=== PATIENT | male | born 1955 | race Caucasian/White ===

== ENCOUNTER 2022-03-04 10:29 | Outpatient (CLI) | payer MEDICARE, OTHER, SELFPAY | END 2022-03-04 10:30 | disposition home or self-care (01) | LOC: ANHAUDIO 10:30 | PROVIDERS: PCP Family Medicine; Visit Provider Internal Medicine | DX: H90.3 Sensorineural hearing loss, bilateral (principal) | CPT/HCPCS: 92557; 92567 ==

== ENCOUNTER 2022-07-01 01:42 | Day surgery (SDC) | payer MEDICARE, OTHER, SELFPAY ==
[2022-06-17 13:48] VITALS: BMI 26.6
[2022-07-01 09:11] VITALS: BP 150/76; PULSE 96; RESP 16; TEMP 36.5; O2SAT 98
[2022-07-01] MEDS: LACTATED RINGERS 1,000 ML 150 ML IV CONT (09:20)
[2022-07-01 09:25] LABS: Glucose Point of Care 101 mg/dl (65-105)
--- NOTE | 2022-07-01 09:46 | P.HP_ITS ---
History of Present Illness History of Present Illness Consent: Risks, benefits, and alternatives have been discussed and questions answered. Patient agrees to proceed with procedure. Chief complaint: Hx of colon polyps Narrative: Ebenezer Murdock is a 66 year old male Presents for screening colonoscopy. Patient's current weight appetite bowel movements are normal. He denies abdominal pain. Patient has had no bleeding. Family history noncontributory. Patient did have a colonoscopy 2016 that revealed adenomatous colon polyps. Patient presents today for screening colonoscopy Review of Systems Review of Systems: review of systems noncontributory. FOR[facility]LY [facility] Social History Social History Smoking status: Current some day smoker Tobacco type: smokeless tobacco Alcohol use details: 2 drinks monthly Substance use type: does not use Living arrangements: with family Spiritual care concerns: No Meds Home Medications and Allergies Home Medications Medication Instructions Recorded Confirmed Type aspirin 81 mg tablet 81 mg PO DAILY 06/17/22 07/01/22 History cholecalciferol (vitamin D3) 25 25 mcg PO DAILY 06/17/22 07/01/22 History mcg (1,000 unit) tablet (Vitamin D3) lisinopril 20 mg tablet 20 mg PO DAILY 06/17/22 07/01/22 History mecobalamin (vitamin B12) 1,000 1,000 mcg PO DAILY 06/17/22 07/01/22 History mcg chewable tablet metformin 500 mg tablet,extended 1,000 mg PO DAILY 06/17/22 07/01/22 History release 24 hr fpcdgifq-rot-veffh acid 300 1 tablet PO DAILY 06/17/22 07/01/22 History mcg-lycopene 600 mcg-lutein 300 mcg tablet (Centrum Silver Men) pravastatin 40 mg tablet 40 mg PO HS 06/17/22 07/01/22 History sodium,potassium,mag sulfates 17.5 See Rx Instructions PO .COMPLEX 06/23/22 07/01/22 Rx gram-3.13 gram-1.6 gram oral soln #354 mL (Suprep Bowel Prep Kit) Allergies Allergy/AdvReac Type Severity Reaction Status Date / Time codeine AdvReac Nausea and Verified 07/01/22 09:08 Vomiting Vital Signs Vital Signs - 24 hr 07/01/22 09:11 Temperature 97.7 F Pulse Rate 96 Respiratory Rate 16 Blood Pressure 150/76 H Pulse Oximetry 98 Oxygen Delivery Room Air Exam Narrative: Physical exam reveals patient be alert. Vital signs stable. HEENT exam is unremarkable. Patient is anicteric. Lungs are clear to auscultation and percussion. Heart is without murmur or extra sounds. Abdomen bowel sounds are present soft nontender with no organomegaly. Digital external rectal exam is normal. Assessment and Plan Assessment and plan (1) History of colon polyps: Code(s): Z86.010 - Personal history of colonic polyps Status: Acute Assessment and Plan: Patient presents for screening colonoscopy. Prior history of adenomatous colon polyp in 2017. Plan for screening colonoscopy at 5 year intervals. Further recommendations may be given after endoscopy.
--- NOTE | 2022-07-01 10:05 | P.PNAN_ITS ---
Anes - Initial Pre Proc Eval Procedure: Operation Date: 07/01/22 10:15 Proposed Procedures p Screening Colonoscopy - Luis Humphrey MD Date/Time: 07/01/22 10:05 Surgeon: Luis Humphrey MD Pre Op Diagnosis: Hx of colon polyps Patient Data Age: 66 Gender: M Height: 1.68 m Weight: 78.6 kg Last Vital Signs Temp 97.7 F 07/01/22 09:11 Pulse 96 07/01/22 09:11 Resp 16 07/01/22 09:11 BP 150/76 H 07/01/22 09:11 Pulse Ox 98 07/01/22 09:11 O2 Del Method Room Air 07/01/22 09:11 Allergies Allergy/AdvReac Type Severity Reaction Status Date / Time codeine AdvReac Nausea and Verified 07/01/22 09:08 Vomiting Home Medications Medication Instructions Recorded Confirmed Type aspirin 81 mg tablet 81 mg PO DAILY 06/17/22 07/01/22 History cholecalciferol (vitamin D3) 25 25 mcg PO DAILY 06/17/22 07/01/22 History mcg (1,000 unit) tablet (Vitamin D3) lisinopril 20 mg tablet 20 mg PO DAILY 06/17/22 07/01/22 History mecobalamin (vitamin B12) 1,000 1,000 mcg PO DAILY 06/17/22 07/01/22 History mcg chewable tablet metformin 500 mg tablet,extended 1,000 mg PO DAILY 06/17/22 07/01/22 History release 24 hr lqfkzdpo-and-aftsg acid 300 1 tablet PO DAILY 06/17/22 07/01/22 History mcg-lycopene 600 mcg-lutein 300 mcg tablet (Centrum Silver Men) pravastatin 40 mg tablet 40 mg PO HS 06/17/22 07/01/22 History sodium,potassium,mag sulfates 17.5 See Rx Instructions PO .COMPLEX 06/23/22 07/01/22 Rx gram-3.13 gram-1.6 gram oral soln #354 mL (Suprep Bowel Prep Kit) Laboratory Tests 07/01/22 09:22 POC Capillary Glucose 101 mg/dl mg/dl (65-105) Patient hx anesthesia problems: none Family hx anesthesia problems: none Results Review: All pre-operative results and documents have been reviewed as part of the pre- operative evaluation. PMF Social History Social History Smoking status: Current some day smoker Tobacco type: smokeless tobacco Alcohol use details: 2 drinks monthly Substance use type: does not use Living arrangements: with family Spiritual care concerns: No Anes - Eval Final PreProcedure Day of Procedure 07/01/22 10:05 Patient weight: normal Heart: regular rate and rhythm Lungs: clear to auscultation Airway: Mallampati scale class II Neurological: alert and oriented Last oral intake: >/= 8 hours ASA classification: III Emergent: no Anesthetic plan: proceed Anesthesia type and monitoring: general GIVS and standard monitoring Results Review: All pre-operative results and documents have been reviewed as part of the pre- operative evaluation. Informed Consent: The patient's anesthetic plan and its attendant risks and benefits were discussed with the patient/family/POA. Questions were solicited and answers provided to the satisfaction of the patient/family/POA.
[2022-07-01 10:58] VITALS: BP 102/68; PULSE 88; RESP 16; O2SAT 95
[2022-07-01 11:08] VITALS: BP 133/76; PULSE 70; RESP 18; O2SAT 98
[2022-07-01 11:18] VITALS: BP 152/71; PULSE 74; RESP 18; O2SAT 98
== END 2022-07-01 11:27 | disposition home or self-care (01) ==
PROVIDERS: PCP Family Medicine; Visit Provider Internal Medicine Gastroenterology
PROC: 0DJD8ZZ Inspection of Lower Intestinal Tract, Via Natural or Artificial Opening Endoscopic (ICD-10-PCS; CPT 45378; principal; 2022-07-01 10:15)
DX: Z12.11 Encounter for screening for malignant neoplasm of colon (principal); K64.8 Other hemorrhoids; K57.30 Diverticulosis of large intestine without perforation or abscess without bleeding; Z86.010 Personal history of colon polyps; Z79.82 Long term (current) use of aspirin; Z79.84 Long term (current) use of oral hypoglycemic drugs; F17.220 Nicotine dependence, chewing tobacco, uncomplicated
CPT/HCPCS: G0105; 82948; J2704; J7120

== ENCOUNTER 2022-07-01 11:30 | Outpatient (RCR) | payer MEDICARE, OTHER, SELFPAY | END 2022-07-01 23:59 | disposition home or self-care (01) | LOC: ANHAUDIO 11:30 | PROVIDERS: PCP Family Medicine; Visit Provider Family Medicine | DX: Z46.1 Encounter for fitting and adjustment of hearing aid (principal) | CPT/HCPCS: 99199; V5261 ==

== ENCOUNTER 2023-07-06 14:15 | Outpatient (RCR) | payer MEDICARE, OTHER, SELFPAY ==
--- NOTE | 2023-05-03 09:01 | PTOPEVAL1 ---
Assessment and note entered by Juaquin Wise Evaluation Information Assessment Status Evaluation Diagnosis right shoulder pain Onset 04/21/23 Subjective Information Pt. reports that he developed right shoulder pain about 2 weeks ago. He recalls no incident, just woke with pain. he reports that pain is incresaed with laying on the right side. He recalls no pain in the neck, but describes pain radiating down the entire arm. He reports that he has no pain with moving the shoulder he has no increase in pain. Pt. reports that he underwent xray that was negative. pt. is right hand dominant. Pt. reports that he is still able to complete all his regular at home activities, including yardwork. He states that his biggest complication is his difficulty with sleep due to his shoulder/right arm pain. he reports that his goal for therapy is to reduce his pain so he can sleep better. Reported Pain Level Pain Score 5: Self Report Assessment PT Clinical Summary Pt. is a 67 year old male who enters the clinic with right shoulder pain. Upon examination pt. presents with objective findings consistent with right cervical radiculopathy. He currently presents with right u.e. weakness, impaired postural awareness, impaired c-spine ROM and pain. Continued skilled PT is indicated in order to improve these areas to allow the pt. to be able to participate in all IADL's without limitation. Plan of Care Interventions Electrical Stimulation,Hot Pack/Cold Pack,Manual Therapy,Neuro Re-education,Patient/Caregiver Educati,Therapeutic Activities,Therapeutic Exercise PT Services Indicated Yes Treatment Frequency and 2x/week x 10 visits Duration These treatments will address the objective and functional deficits as defined above. The patient will be advanced safely and appropriately in order for the patient to progress towards his/her prior level of function. Additional exercises will be introduced and as well as a comprehensive home exercise program upon discharge, if needed, ?to ensure carryover of functional gains achieved in the clinic. This treatment plan has been reviewed and agreement upon by the patient.
--- NOTE | 2023-05-03 09:11 | OPREHPOC ---
Outpatient Therapy Plan of Care This is a Multidisciplinary Plan of Care that may contain components documented by all disciplines (PT, OT, and ST.) PT Problem 1 PT Problem #1 Knowledge Deficit PT Goal 1 Goal Pt. will be independent with a HEP addressing posture and strength. Target Visit 2 PT Problem 2 PT Problem #2 Impaired Range of Motion PT Goal 1 Goal Pt. will demonstrate 80 degrees of right cervical rotation and 45 degrees of right lateral flexion in order to improve visual field with activities such as driving. Target Visit 10 PT Problem 3 PT Problem #3 Impaired Strength PT Goal 1 Goal Pt. will increase right tricep strength to 4/5 or greater PT Goal 2 Goal Pt. will demonstrate 4+/5 or greater gross right u .e. strength to assist with improved IADL performance PT Problem 4 PT Problem #4 Impaired Functional Mobil PT Goal 1 Goal Pt. will report being able to sleep through the night without pain disturbance Target Visit 10
--- NOTE | 2023-05-31 16:37 | PTOPPROG ---
Assessment and note entered by Amarilys Macias, PT Assessment Status Progress Diagnosis right shoulder pain, cervical radiculopathy Onset 04/21/23 Subjective Information Self-perceived improvement: 90% Still has tingling in RUE and periodically if doing things, will have some aggravation up in the shoulder. Has been doing half a dose of the meloxicam for approx a week, has not changed symptoms. Has been able to return to sleeping normally, that's improved 100% Assessment PT Clinical Summary Pt has presented to therapy consistently for right shoulder pain that appears to be related to cervical spine causing radiculopathy. Pt has greatly improved in his pain ratings, has been able to reduce meloxicam, improved ability to adopt appropriate postures, improved ROM, and improved shoulder strength. Cont to demo significantly decreased tricep strength, cont to have radicular symptoms at times, and cont to have a stiff cervical spine as well as cont difficulty with scapular awareness. Thus patient will benefit from cont therapy to continue progress and return to painfree lifestyle. Plan of Care Interventions Electrical Stimulation,Gait Training,Hot Pack/Cold Pack,Manual Therapy,Mechanical Traction,Neuro Re- education,Patient/Caregiver Educati,Therapeutic Activities,Therapeutic Exercise,Ultrasound PT Services Indicated Yes Treatment Frequency and 1-2x weekly x 4 weeks Duration These treatments will address the objective and functional deficits as defined above. The patient will be advanced safely and appropriately in order for the patient to progress towards his/her prior level of function. Additional exercises will be introduced and as well as a comprehensive home exercise program upon discharge, if needed, ?to ensure carryover of functional gains achieved in the clinic. This treatment plan has been reviewed and agreement upon by the patient.
--- NOTE | 2023-07-01 12:50 | PTOPPROG ---
Assessment and note entered by Amarilys Macias, PT Assessment Status Progress Diagnosis right shoulder pain, cervical radiculopathy Onset 04/21/23 Subjective Information Reports most discomfort in the morning. Has had mainly shoulder pain but up to a 1/10. using biofreeze helps sleep at night. Is now able to sleep on both sides. Only has tingling with wall exercises. Still feels about 90% improved overall. Much less tingling and intensity is less as well. Assessment PT Clinical Summary Pt has attended therapy consistently for right shoulder pain and radiculopathy. Pt does not seem to have improved in ROM quantity but pt reports greater ease of movement with ROM testing. Continues to feel 90% improved overall but does report since shift in focus to cervical mechanical traction and IASTM to right shoulder improvement in symptoms. Pt will also be leaving for multiple months soon thus will benefit from one additional visit for cervical traction and to finalize HEP and plan for his vacation. Plan of Care Interventions Electrical Stimulation,Gait Training,Hot Pack/Cold Pack,Manual Therapy,Mechanical Traction,Neuro Re- education,Patient/Caregiver Educati,Therapeutic Activities,Therapeutic Exercise,Ultrasound PT Services Indicated Yes Treatment Frequency and 1 additional visit to finalize plan for vacation Duration These treatments will address the objective and functional deficits as defined above. The patient will be advanced safely and appropriately in order for the patient to progress towards his/her prior level of function. Additional exercises will be introduced and as well as a comprehensive home exercise program upon discharge, if needed, ?to ensure carryover of functional gains achieved in the clinic. This treatment plan has been reviewed and agreement upon by the patient.
--- NOTE | 2023-07-22 13:54 | PTOPDC ---
Assessment and note entered by Amarilys Macias, PT Assessment Status Discharge - Pt Not Present Diagnosis right shoulder pain, cervical radiculopathy Onset 04/21/23 Subjective Information Reports most discomfort in the morning. Has had mainly shoulder pain but up to a 1/10. using biofreeze helps sleep at night. Is now able to sleep on both sides. Only has tingling with wall exercises. Still feels about 90% improved overall. Much less tingling and intensity is less as well. Assessment PT Clinical Summary Pt attended therapy consistently, has updated HEP, and [place] Thus patient is being discharged from services
== END 2023-07-22 14:01 | disposition home or self-care (01) ==
LOC: ANHHIPT 14:15
PROVIDERS: PCP Family Medicine; Visit Provider Family Medicine
DX: M25.511 Pain in right shoulder (principal)
CPT/HCPCS: 97012; 97014; 97110; 97112; 97140; 97161; 97750; G0283

== ENCOUNTER 2024-02-29 08:16 | Outpatient (CLI) | payer MEDICARE, OTHER, SELFPAY ==
--- NOTE | ~2024-02-29 | US_ITS ---
EXAMINATION: US renal BI DATE: 02/29/2024 09:05 INDICATION: Chronic hypertensive kidney disease. TECHNIQUE: Multiple ultrasound grayscale images of the kidneys were obtained. COMPARISON: None. FINDINGS: The right kidney measures 10.9 x 5.6 x 5.9 cm. The left kidney measures 10.2 x 4.9 x 4.7 cm. The kidn eys demonstrate normal echogenicity. There is no hydronephrosis in either kidney. No stones identifi ed. There is a nodular contour to the floor of the bladder which appears to result from the enlarged prostate. Trabecular pattern to the mucosal surface of the posterior dome of the bladder likely relat ed to chronic outlet obstruction from the enlarged prostate. Bilateral ureteral jets are visualized i n the bladder on color Doppler. IMPRESSION: 1. Normal kidneys without hydronephrosis. 2. Nodular contour to the floor of the bladder which appears to result from the enlarged prostate wit h trabeculated appearance to the posterior dome of the bladder likely related to chronic outlet obstr uction. Reviewed, dictated and finalized at location B. IMPRESSION: 1. Normal kidneys without hydronephrosis. 2. Nodular contour to the floor of the bladder which appears to result from the enlarged prostate with trabeculated appearance to the posterior dome of the bl adder likely related to chronic outlet obstruction.
== END 2024-02-29 08:17 | disposition home or self-care (01) ==
LOC: ANHIMG 08:17
PROVIDERS: PCP Family Medicine; Visit Provider Internal Medicine Nephrology
DX: I12.9 Hypertensive chronic kidney disease with stage 1 through stage 4 chronic kidney disease, or unspecified chronic kidney disease (principal); N18.32 Chronic kidney disease, stage 3b
CPT/HCPCS: 76775